=== PATIENT | male | born 1950 | race Hispanic/Latino ===

== ENCOUNTER 2023-12-19 07:06 | Day surgery (SDC) | payer OTHER ==
[2023-12-17 14:34] LABS: BASOPHILS # (AUTO) 0.07 K/uL (0.00-0.20); EOSINOPHILS % (AUTO) 1.5 % (0.0-8.0); HEMATOCRIT 45.9 % (42-54); IMMATURE GRANULOCYTE ABSOLUTE 0.02 K/uL (0-1); LYMPHOCYTES # (AUTO) 2.5 K/uL (1.0-4.8); LYMPHOCYTES % (AUTO) 37.6 % (21.0-51.0); MEAN CORPUSCULAR HEMOGLOBIN 33.8 pg (27.0-33.0); MEAN CORPUSCULAR HGB CONC 35.1 g/dL (32.0-36.0); MEAN CORPUSCULAR VOLUME 96.2 fL (79-99); MONOCYTES # (AUTO) 0.5 K/uL (0.1-1.0); MONOCYTES % (AUTO) 7.8 % (3.0-13.0); NEUTROPHILS # (AUTO) 3.5 K/uL (1.8-7.7); NEUTROPHILS % (AUTO) 51.8 % (40.0-77.0); PLATELET COUNT (AUTO) 189 K/uL (130-400); RED BLOOD CELL COUNT(AUTO) 4.77 MIL/uL (4.50-6.20); RED CELL DISTRIBUTION WIDTH 12.9 % (11.0-15.5); WHITE BLOOD COUNT (AUTO) 6.7 K/uL (4.8-10.8)
[2023-12-17 14:42] LABS: CREATININE 1.2 mg/dL (0.5-1.3); POTASSIUM 4.3 mmol/L (3.5-5.1)
[2023-12-17 14:43] LABS: INR 1.02 (0.85-1.15)
[2023-12-17 14:45] LABS: PARTIAL THROMBOPLASTIN TIME 28.4 SEC (26.3-35.5)
[2023-12-17 14:49] VITALS: BP 135/74; PULSE 58; RESP 16; TEMP 97.3
[2023-12-17 14:51] LABS: B-TYPE NATRIURETIC PEPTIDE 47 pg/mL (0-100)
[2023-12-19] VITALS (13 sets, daily range): BP systolic 108–183; BP diastolic 63–102; PULSE 54–86; RESP 16–18; TEMP 97.4–97.8
[~2023-12-19] VITALS: Ht 170.2 cm; Wt 96.6 kg
[~2023-12-19 07:06] MED LIST: NEBI5TAB12 PO; RANO500T6 PO; SACU1TAB7 PO; TAMS-1 PO
[2023-12-19] MEDS: 0.9%NACL 1000ML 1,000 ML IV ONE (07:55)
[2023-12-19] MEDS: LIDOCAINE HCL 2% VISCOUS 15 ML UDCUP PO ONE (07:55)
[2023-12-19] MEDS ORDERED: LIDOCAINE HCL MPF 1% 5ML VIAL ONE (10:00)
[2023-12-19] MEDS ORDERED: proPOFol 10 MG/ML 20ML VIAL IV ONE (10:00)
== END 2023-12-19 11:30 | disposition home or self-care (01) ==
LOC: DAH 07:06
PROVIDERS: ATTEND Internal Medicine Interventional Cardiology
DX: I08.3 Combined rheumatic disorders of mitral, aortic and tricuspid valves (principal); I10 Essential (primary) hypertension; I25.10 Atherosclerotic heart disease of native coronary artery without angina pectoris; G60.8 Other hereditary and idiopathic neuropathies; I73.9 Peripheral vascular disease, unspecified; I71.40 Abdominal aortic aneurysm, without rupture, unspecified; R01.1 Cardiac murmur, unspecified; Z79.01 Long term (current) use of anticoagulants; Z79.899 Other long term (current) drug therapy
CPT/HCPCS: 80048; 83880; 85025; 85610; 85730; 36415; 93005; 93325; J7030; J2704; J3490; C8925; A4620; A4215; A4223 ×3; A7002; A4222; A4221; A4663; A4216 ×2; A4606; 93312